=== PATIENT | male | born 1945 | race African-American/Black ===

== ENCOUNTER → 2018-05-12 | Outpatient (CLI) | payer OTHER ==
[~2018-05-12] MED LIST: CLOPIDOGREL75 MG PO; DOXYCYCLINE 10100 MG PO
== END ==
LOC: HYPER 07:15
DX: E11.621 Type 2 diabetes mellitus with foot ulcer (principal); L97.521 Non-pressure chronic ulcer of other part of left foot limited to breakdown of skin; I87.2 Venous insufficiency (chronic) (peripheral); E11.51 Type 2 diabetes mellitus with diabetic peripheral angiopathy without gangrene; E11.22 Type 2 diabetes mellitus with diabetic chronic kidney disease; I13.0 Hypertensive heart and chronic kidney disease with heart failure and stage 1 through stage 4 chronic kidney disease, or unspecified chronic kidney disease; N18.3 Chronic kidney disease, stage 3 (moderate); I50.9 Heart failure, unspecified; E11.36 Type 2 diabetes mellitus with diabetic cataract; I25.10 Atherosclerotic heart disease of native coronary artery without angina pectoris; E78.5 Hyperlipidemia, unspecified; K21.9 Gastro-esophageal reflux disease without esophagitis; M19.90 Unspecified osteoarthritis, unspecified site; F17.200 Nicotine dependence, unspecified, uncomplicated; F12.90 Cannabis use, unspecified, uncomplicated; Z79.4 Long term (current) use of insulin; Z96.653 Presence of artificial knee joint, bilateral; Z86.73 Personal history of transient ischemic attack (TIA), and cerebral infarction without residual deficits

== ENCOUNTER 2018-05-13 10:34 | Inpatient (IN) | payer OTHER ==
[~2018-05-13] VITALS: Ht 170.2 cm; Wt 83.9 kg
--- NOTE | ~2018-05-13 | HC ---
[facility] [place] [address] CONSULTATION Name: DESI AUSTIN Room #: 431-P [facility] IN M.R.#: [id number] Admission: 05/13/18 Attend Phys: Norm Crenshaw MD Discharge: 05/15/18 Date of : 49 Report #: [id number] THIS REPORT FOR: //name// CC: Norm Gutierrez [facility] DATE OF SERVICE: 05/14/2018 CHIEF COMPLAINT: Gangrene to the toe. HISTORY OF PRESENT ILLNESS: This is a 72-year-old male patient who was admitted to the hospital with a gangrenous change to the tip of the left fourth toe. He denies pain associated with this, but due to progression and concern for peripheral arterial disease, he has been admitted for further evaluation including vascular studies and possible surgical intervention. PAST MEDICAL HISTORY: Positive for history of diabetes mellitus with peripheral neuropathy, history of tobacco abuse, daily alcohol use as well, hyperlipidemia, hypertension, and coronary artery disease. CURRENT MEDICATIONS: Include clopidogrel, buffered aspirin, midazolam, hydralazine lobe, pantoprazole, vancomycin, ketorolac, insulin, ondansetron, polyethylene glycol. ALLERGIES: PENICILLIN and CODEINE. SOCIAL HISTORY: Positive for tobacco and alcohol use daily, as well as recreational drug use including THC. REVIEW OF SYSTEMS: CONSTITUTIONAL: The patient denies fever, chills or weight loss. NEUROLOGICAL: The patient denies focal weakness, numbness or tingling. EYES: The patient denies visual changes, redness or drainage. ENT: The patient denies earache, nasal drainage. CARDIOVASCULAR: The patient denies chest pain or palpitations, diaphoresis. PULMONARY: The patient denies cough, shortness of breath. GASTROINTESTINAL: No nausea, abdominal pain. ORTHOPEDIC: The patient does note joint pain, edema, and leg swelling. Other systems in a 14-point review of systems are negative. PHYSICAL EXAMINATION: VITAL SIGNS: At this time include pulse 72, respiratory rate 14, blood pressure 140/69, and temperature 98.5. GENERAL: This is a chronically ill-appearing male patient who appears to be in no distress. [facility] [address] [place] [address] CONSULTATION Name: DESI AUSTIN Room #: 431-P [facility] IN M.R.#: [id number] Admission: 05/13/18 Attend Phys: Norm Crenshaw MD Discharge: 05/15/18 Date of : 49 Report #: [id number] HEENT: Head normocephalic. Nose and throat are clear. NECK: Supple. LUNGS: Clear. ABDOMEN: Soft. Bowel sounds present. EXTREMITIES: Demonstrate trace edema. He has eschar to the tip of the left fourth toe. It is not overtly infected. Distal pulses are unable to be palpated. LABORATORY DATA: Includes sodium 137, potassium 4.2, chloride 106, CO2 25, BUN 14, creatinine 1.3, glucose 154, alkaline phosphatase 128, albumin 2.7. Urine drug screen is positive for THC. White blood cell count 6.9 with hemoglobin 12.0, hematocrit of 35.3. IMAGING DATA: Arterial angiography today demonstrates a left common iliac artery occlusion and significant stenosis, left external iliac artery and left superficial femoral artery, were treated with percutaneous intervention and stent placement, segment occlusion of distal right superficial femoral artery. Distal portions of the right and left popliteal arteries are small in size. Bilateral popliteal artery occlusive disease. The patient underwent left common iliac artery stent placement, left external iliac artery stent placement and left superficial femoral artery stent placement. He has been seen by podiatry and may require an amputation of the left fourth toe. CLINICAL IMPRESSION: 1. Gangrene to the left fourth toe. 2. Peripheral arterial disease as detailed above, status post percutaneous intervention. 3. Diabetes mellitus. 4. Drug and alcohol use. 5. Moderate protein calorie malnutrition. 6. Diabetes mellitus with peripheral neuropathy. RECOMMENDATIONS: At this point in time, we will continue with local care at this point. There is really nothing open other than the eschar. We will paint that with topical Betadine, await further surgical consideration. We will see how he does following revascularization. I appreciate being asked to see him in consultation. <ELECTRONICALLY SIGNED> By: Isma Dixon MD 05/15/18 1516 [id number] Isma Dixon MD /nt
--- NOTE | ~2018-05-13 | HC ---
[facility] [place] [address] CONSULTATION Name: DESI AUSTIN Room #: 431-P ADM IN M.R.#: [id number] Admission: 05/13/18 Attend Phys: Norm Crenshaw MD Discharge: Date of : 49 Report #: [id number] THIS REPORT FOR: //name// CC: Norm Gutierrez [facility] DATE OF SERVICE: 05/13/2018 HISTORY OF PRESENT ILLNESS: This is a 72-year-old diabetic male with a history of coronary artery disease and hypertension who was admitted today for a nonhealing gangrene to his left fourth toe. The patient is accompanied by his who sits at bedside. They state that about 3 weeks ago, he developed pain to the left fourth toe. It has progressed over the last few weeks and last week he saw his primary care physician who started him on an oral antibiotic, but they are uncertain which one. They have not seen any improvement and in fact feel it has worsened. The patient was seen by Dr. Ellis in wound care clinic yesterday and recommended direct admission. The patient waited until today to come for direct admission. He does have rest pain on the left lower extremity and has some redness and swelling to the top of his foot. The patient also is having issues with balance at home and with overall weakness. He denies fever or chills. PHYSICAL EXAMINATION: On lower extremity physical exam, pedal pulses are difficult to palpate. Extremities are warm, but his left fourth toe is cool to touch. There is dry, stable gangrene extending dorsally just to the base of the fourth nail dorsally, but extending along the entire plantar surface of the fourth toe. There is cellulitis with erythema and edema extending to the mid foot on the left. There are no breaks in the skin. All toenails thickened dystrophic and fungal. There are hammertoes 2 through 5 bilateral. Sensation diminished bilateral lower extremities. ASSESSMENT: A 72-year-old diabetic male with gangrene to the left fourth toe and cellulitis with history of PVD and CABG. -Afebrile and no leukocytosis. -Per note, the patient is pending further vascular workup with likely an angiogram tomorrow. He has had a prior CABG and has followed with Cardiology at [facility]. -At this time, recommend continuing with Dr. Ellis' wound care recs with Betadine and dry sterile dressing. -Recommend rest and elevation and offloading with a surgical [place] [address] CONSULTATION Name: DESI AUSTIN Room #: 431-P ADM IN M.R.#: [id number] Admission: 05/13/18 Attend Phys: Norm Crenshaw MD Discharge: Date of : 49 Report #: [id number] optimizing nutrition (albumin was low) and will allow left fourth toe to fully demarcate I feel highly likely he will require an amputation at minimum of the left fourth toe, but there is no urgency for amputation. will await possible improvement in blood flow with revascularization. -Also recommend IV antibiotics at this time for secondary cellulitis. Thank you for this consult. Angelia Urrutia Thank you for this consult. <ELECTRONICALLY SIGNED> By: Angelia Urrutia DPM 05/14/18 0807 [id number] [id number] Angelia Urrutia DPM /nt
--- NOTE | ~2018-05-13 | EKG ---
[address] [place] [address] ELECTROCARDIOGRAM REPORT Name: DESI AUSTIN Room #: 431-P ADM IN M.R.#: [id number] Admission: 05/13/18 Attend Phys: Norm Crenshaw MD Discharge: Date of : 49 Report #: [id number] THIS REPORT FOR: //name// [facility] Test Date: 2018-05-13 Test Time: 13:31:10 Pat Name: DESI AUSTIN Department: Room: 431 Gender: M Traffic Assistant: Leobardo TALBOT : 1945 Requested By: Adele Rosario Order Number: [id number] MD: David Luke Measurements Intervals Isabel Rate: 61 P: 44 NH: 205 QRS: 13 QRSD: 98 T: 40 QT: 406 QTc: 409 Interpretive Statements Sinus rhythm No significant abnormality No previous ECG available for comparison Electronically Signed On 05-13-2018 17:08:31 CDT by David Luke [email or web address] <ELECTRONICALLY SIGNED> By: David Luke MD, [facility] 05/13/18 1708 1331 1331 David Luke MD, FACC /EPI
[2018-05-13 15:16] LABS: ABSOLUTE NEUTROPHILS 5.6 thou/uL (1.4-8.2); BASOPHILS 0.6 % (0.0-2.0); EOSINOPHILS 0.8 % (0.0-3.0); HEMATOCRIT 37.7 % (42.0-52.0); HEMOGLOBIN 12.7 gm/dL (14.0-18.0); LYMPHOCYTES 24.6 % (24.0-44.0); MCHC 33.6 g/dL (28.0-37.0); MCV 89.3 fL (80.0-100.0); MONOCYTES 8.8 % (1.0-8.0); PLATELET COUNT 265 thou/uL (150-400); POLYS 65.2 % (36.0-66.0); RBC 4.22 mil/uL (4.50-6.00); RDW 13.7 % (10.5-14.5); WBC 8.6 thou/uL (4.0-11.0)
[2018-05-13 15:28] LABS: PROTIME 10.3 Seconds (9.3-11.4)
[2018-05-13 15:39] LABS: ALBUMIN 2.7 g/dL (3.4-5.0); CALCIUM 9.7 mg/dL (8.5-10.1); CREATININE 1.3 mg/dL (0.7-1.3); POTASSIUM 4.8 mmol/L (3.5-5.1); TOTAL BILIRUBIN 0.3 mg/dL (<0.1-1.0); TOTAL PROTEIN 6.8 g/dL (6.4-8.2)
[2018-05-13 19:35] VITALS: BP 150/72
[2018-05-14 04:18] LABS: BASOPHILS 0.3 % (0.0-2.0); EOSINOPHILS 1.3 % (0.0-3.0); HEMATOCRIT 35.3 % (42.0-52.0); LYMPHOCYTES 30.3 % (24.0-44.0); MCH 30.3 pg (26.0-34.0); MCV 89.1 fL (80.0-100.0); MONOCYTES 10.4 % (1.0-8.0); PLATELET COUNT 260 thou/uL (150-400); POLYS 57.7 % (36.0-66.0); RBC 3.97 mil/uL (4.50-6.00); RDW 13.4 % (10.5-14.5); WBC 6.9 thou/uL (4.0-11.0)
[2018-05-14 04:27] VITALS: BP 161/82
[2018-05-14 04:40] LABS: CALCIUM 9.1 mg/dL (8.5-10.1); CREATININE 1.3 mg/dL (0.7-1.3); MAGNESIUM 1.9 mg/dL (1.8-2.4); POTASSIUM 4.2 mmol/L (3.5-5.1)
[2018-05-14 07:38] VITALS: BP 140/69
[2018-05-14 08:40] LABS: URINE BILIRUBIN NEGATIVE (Negative); URINE BLOOD NEGATIVE (Negative); URINE CLARITY CLEAR; URINE COLOR YELLOW; URINE GLUCOSE-RANDOM* NEGATIVE (Negative); URINE KETONES NEGATIVE (Negative); URINE LEUKOCYTES-REFLEX NEGATIVE (Negative); URINE NITRITE-REFLEX NEGATIVE (Negative); URINE PROTEIN (DIPSTICK) TRACE (Negative); URINE SPECIFIC GRAVITY 1.025 (1.005-1.035); URINE UROBILINOGEN 0.2 E.U./dl (0.2-1.0)
[2018-05-14 08:48] LABS: AMP/METHAMP Negative (Negative); BARBITURATES Negative (Negative); BENZODIAZEPINES Negative (Negative); COCAINE Negative (Negative); METHADONE Negative (Negative); OPIATES Negative (Negative); PCP Negative (Negative)
[2018-05-14 16:00] VITALS: BP 133/74
[2018-05-14 19:47] VITALS: BP 144/67
[2018-05-15] VITALS (7 sets, daily range): BP systolic 136–137; BP diastolic 63–64
[2018-05-15 03:41] LABS: HEMATOCRIT 36.8 % (42.0-52.0); HEMOGLOBIN 12.4 gm/dL (14.0-18.0); MCH 29.9 pg (26.0-34.0); MCHC 33.8 g/dL (28.0-37.0); MCV 88.6 fL (80.0-100.0); RBC 4.16 mil/uL (4.50-6.00); RDW 13.8 % (10.5-14.5); WBC 6.7 thou/uL (4.0-11.0)
[2018-05-15 03:50] LABS: CALCIUM 9.2 mg/dL (8.5-10.1); CREATININE 1.2 mg/dL (0.7-1.3); POTASSIUM 4.2 mmol/L (3.5-5.1)
[2018-05-15] MEDS ORDERED: DOXYCYCLINE 10100 MG PO (09:42)
[2018-05-15] MEDS ORDERED: CLOPIDOGREL75 MG PO (09:42)
== END 2018-05-15 14:54 | disposition home health service (06) | DRG 252 ==
LOC: 4E 10:34
PROVIDERS: Nuclear Medicine Nuclear Cardiology; Nurse Practitioner
PROC: 047L3DZ Dilation of Left Femoral Artery with Intraluminal Device, Percutaneous Approach (ICD-10-PCS; principal; 2018-05-14)
PROC: 047J3DZ Dilation of Left External Iliac Artery with Intraluminal Device, Percutaneous Approach (ICD-10-PCS; principal; 2018-05-14)
PROC: 047D3DZ Dilation of Left Common Iliac Artery with Intraluminal Device, Percutaneous Approach (ICD-10-PCS; principal; 2018-05-14)
PROC: B4181ZZ Fluoroscopy of Bilateral Renal Arteries using Low Osmolar Contrast (ICD-10-PCS; principal; 2018-05-14)
DX: E11.52 Type 2 diabetes mellitus with diabetic peripheral angiopathy with gangrene (principal); E43 Unspecified severe protein-calorie malnutrition; I96 Gangrene, not elsewhere classified; E44.0 Moderate protein-calorie malnutrition; I25.10 Atherosclerotic heart disease of native coronary artery without angina pectoris; I10 Essential (primary) hypertension; L03.032 Cellulitis of left toe; E11.42 Type 2 diabetes mellitus with diabetic polyneuropathy; F17.210 Nicotine dependence, cigarettes, uncomplicated; E78.5 Hyperlipidemia, unspecified; Z66 Do not resuscitate; Z96.653 Presence of artificial knee joint, bilateral; I74.5 Embolism and thrombosis of iliac artery; I70.8 Atherosclerosis of other arteries; Z79.82 Long term (current) use of aspirin; Z95.1 Presence of aortocoronary bypass graft; Z88.6 Allergy status to analgesic agent; Z72.89 Other problems related to lifestyle; Z88.0 Allergy status to penicillin; Z79.899 Other long term (current) drug therapy; Z68.29 Body mass index [BMI] 29.0-29.9, adult
CPT/HCPCS: 10783